=== PATIENT | male | born 1945 | race Caucasian/White ===

== ENCOUNTER 2020-08-23 12:43 | Outpatient (CLI) | payer MEDICARE, SELFPAY ==
--- NOTE | 2020-08-23 12:55 | XR_ITS ---
WS: [id number] Right knee, AP and lateral, 08/23/2020 Clinical Data: RT KNEE PAIN Comparison: None. Findings: No fractures or dislocations are seen. The joint spaces are normal. The patella is intact. The soft t issues are unremarkable. XR/XR knee RT 1-2V [id number] Impression: Negative right knee.
== END 2020-08-23 12:44 | disposition home or self-care (01) ==
PROVIDERS: PCP Family Medicine; Visit Provider Family Medicine
DX: M25.561 Pain in right knee (principal)
CPT/HCPCS: 73560

== ENCOUNTER 2024-09-26 11:01 | Outpatient (CLI) | payer MEDICARE, OTHER, SELFPAY ==
--- NOTE | 2024-09-26 11:05 | USCV_ITS ---
Dionte Zhang Age: 79 Gender: M : 1945 Exam Date: 09/26/2024 11:21 Ordering Phys: Juanita Manzanares NP Technologist: FAB [place] [facility] [place]: Risk Factors: Previous Vascular Surgery: RIGHT LEFT BP: 122.0 / 88.00 BP: 122.0/ 86.00 0 0 Waveform Velocity (cm/s) Velocity (cm/s) Waveform Triphasic 61.0 Iliac Prox 53.6 Triphasic Triphasic 52.5 Iliac Mid 48.1 Triphasic Triphasic 59.0 Iliac Distal 52.0 Triphasic Triphasic 67.0 FEEDER CATCHER TOBACCO 47.0 Triphasic Triphasic 71.0 SFA Prox 82.0 Triphasic Triphasic 53.0 SFA Mid 56.0 Triphasic Triphasic 56.0 SFA Dist 47.0 Biphasic Triphasic 44.0 POP 27.0 Triphasic Biphasic 55.0 SECURITY THREAT ANALYST 50.0 Biphasic Triphasic 47.0 DPA 54.0 Triphasic 1.2 GRACIELA 1.2 FINDINGS Resting GRACIELA 1.2 bilaterally. Intimal thickening and minimal plaque in the iliac, femoral and popliteal arteries bilaterally Normal or near normal arterial Doppler waveforms bilaterally CONCLUSIONS 1. Normal resting ABIs bilaterally suggesting no significant arterial obstruction. 2. Intimal thickening and minimal plaque in the iliac , femoral and popliteal arteries bilaterally Dr Ana Montalvo MD [facility] (Electronically Signed) Final Date: 26 September 2024 20:09 S
== END 2024-09-26 11:02 | disposition home or self-care (01) ==
LOC: RAD 11:03
PROVIDERS: PCP Nurse Practitioner Family; Visit Provider Nurse Practitioner Family
DX: I70.203 Unspecified atherosclerosis of native arteries of extremities, bilateral legs (principal); I73.00 Raynaud's syndrome without gangrene; L60.8 Other nail disorders; R60.0 Localized edema
CPT/HCPCS: 93925

== ENCOUNTER 2024-10-18 12:17 | Outpatient (CLI) | payer MEDICARE, OTHER, SELFPAY ==
--- NOTE | 2024-10-18 12:21 | USCV_ITS ---
Leatha Dionte Age: 79 Gender: M : 1945 Exam Date: 10/18/2024 12:34 Ordering Phys: Juanita Manzanares NP Technologist: FAB Exam Location: [facility] [place] Indication: edema HISTORY: Lower extremity edema. PROCEDURES: Venous duplex imaging was performed in bilateral lower extremities. The following venous structures were evaluated: common femoral vein, profunda vein, proximal portion of the greater saphenous vein, superficial femoral vein, and the popliteal vein. In addition, the posterior tibial and peroneal trunk were evaluated. Bilaterally, the common femoral, superficial femoral, profunda femoral, popliteal, posterior tibial, greater saphenous veins, and the peroneal trunk were identified and interrogated in the standard fashion. These veins were found to be easily compressible with spontaneous blood flow. No evidence of insufficiency or thrombus noted. Serial compression, augmentation maneuvers, and spectral Doppler flow evaluation were performed. FINDINGS: No evidence of DVT seen in any vessel visualized at this time. CONCLUSIONS No evidence of right lower extremity DVT. No evidence of left lower extremity DVT. Pastor Estrada MD (Electronically Signed) Final Date: 18 October 2024 15:24 S
== END 2024-10-18 12:18 | disposition home or self-care (01) ==
PROVIDERS: PCP Nurse Practitioner Family; Visit Provider Nurse Practitioner Family
DX: R60.0 Localized edema (principal); L60.8 Other nail disorders; R26.9 Unspecified abnormalities of gait and mobility; R29.898 Other symptoms and signs involving the musculoskeletal system; I73.00 Raynaud's syndrome without gangrene
CPT/HCPCS: 93970

== ENCOUNTER → 2025-01-04 15:48 | Outpatient (BNVA) | payer MEDICARE, OTHER, SELFPAY | PROVIDERS: PCP Nurse Practitioner Family; Referring Provider Nurse Practitioner Family; Visit Provider Specialist | DX: G62.9 Polyneuropathy, unspecified (principal); R29.898 Other symptoms and signs involving the musculoskeletal system; G62.89 Other specified polyneuropathies | CPT/HCPCS: 95910 ==

== ENCOUNTER → 2025-08-27 15:28 | Outpatient (BNVA) | payer MEDICARE, OTHER, SELFPAY | PROVIDERS: PCP Nurse Practitioner Family; Visit Provider Specialist | DX: G62.89 Other specified polyneuropathies (principal); E03.9 Hypothyroidism, unspecified; R62.50 Unspecified lack of expected normal physiological development in childhood; R25.2 Cramp and spasm; G82.20 Paraplegia, unspecified; E22.0 Acromegaly and pituitary gigantism; M47.12 Other spondylosis with myelopathy, cervical region; N31.9 Neuromuscular dysfunction of bladder, unspecified | CPT/HCPCS: 36415; 82607; 82746; 83003; 83921; 84443; 85651; 86140; 86334; 86431; 99205 ==

== ENCOUNTER 2025-09-13 11:44 | Outpatient (CLI) | payer MEDICARE, OTHER, SELFPAY ==
--- NOTE | 2025-09-13 12:15 | MR_ITS ---
WS: [id number] MRI THORACIC SPINE WITHOUT CONTRAST TECHNIQUE: Sagittal T1, T2 and STIR imaging. Axial T2 imaging. Noncontrast imaging obtained. CLINICAL INFORMATION: R25.2 - Cramp and spasm COMPARISON: None. FINDINGS: Mild thoracic curve. Mild thoracic kyphosis. No acute compression fractures. No high-grade central canal stenosis. Cord signal appears normal. No significant disc protrusions or extrusions. Disc space heights and vertebral body heights are relatively well-maintained. Moderate facet arthropathy lower thoracic spine. Adrenal glands are normal. Normal caliber descending thoracic aorta. Small esophageal hiatal hernia. MR/MR thoracic spin wo con* [id number] IMPRESSION: 1. No acute thoracic spine findings.
--- NOTE | 2025-09-13 13:00 | MR_ITS ---
WS: [id number] MRI LUMBAR SPINE NONCONTRAST TECHNIQUE: Sagittal T1, T2 and STIR imaging. Axial T1 and T2 imaging. CLINICAL INFORMATION: R25.2 - Cramp and spasm COMPARISON: None. FINDINGS: Exaggeration of the normal lumbar lordosis. No high-grade central canal narrowing. L1-L2: Normal. L2-L3: Mild annular bulging. Mild facet arthropathy. Mild LEFT greater than RIGHT foraminal narrowing. Mild facet arthropathy. L3-L4: LEFT foraminal protrusion impinges the exiting LEFT L3 nerve root with mild to moderate foraminal narrowing. RIGHT foramen is patent. Mild facet arthropathy. Narrowing of the LEFT subarticular recess. L4-L5: Mild annular bulging. Mild facet arthropathy. Mild LEFT greater than RIGHT foraminal narrowing. L5-S1: L5 is partially sacralized. Spinal canal and foramen are patent. Visualized pelvic bony structures: Normal. Paravertebral soft tissues: Normal. MR/MR lumbar spine wo con* [id number] IMPRESSION: 1. Exaggeration of the normal lumbar lordosis. No high-grade central canal shannan nosis. 2. Mild clumping of the cauda equina nerve roots with peripheral displacement at L4 extending distally suspicious for arachnoiditis. 3. LEFT foraminal protrusion L3-4 impinges the exiting LEFT L3 nerve root. 4. Mild LEFT L2-3 foraminal narrowing with a small LEFT foraminal protrusion. 5. Mild LEFT L4-5 foraminal narrowing.
== END 2025-09-13 11:45 | disposition home or self-care (01) ==
LOC: RAD 11:45
PROVIDERS: PCP Nurse Practitioner Family; Visit Provider Specialist
DX: R25.2 Cramp and spasm (principal); M51.369 Other intervertebral disc degeneration, lumbar region without mention of lumbar back pain or lower extremity pain; M48.061 Spinal stenosis, lumbar region without neurogenic claudication; M47.816 Spondylosis without myelopathy or radiculopathy, lumbar region; M51.16 Intervertebral disc disorders with radiculopathy, lumbar region; M43.27 Fusion of spine, lumbosacral region; G83.4 Cauda equina syndrome; M40.56 Lordosis, unspecified, lumbar region; M40.04 Postural kyphosis, thoracic region; M40.204 Unspecified kyphosis, thoracic region; M47.814 Spondylosis without myelopathy or radiculopathy, thoracic region; K44.9 Diaphragmatic hernia without obstruction or gangrene
CPT/HCPCS: 72146; 72148

== ENCOUNTER 2025-09-19 12:49 | Outpatient (CLI) | payer MEDICARE, OTHER, SELFPAY ==
--- NOTE | 2025-09-19 13:00 | MR_ITS ---
WS: [id number] MRI BRAIN WITHOUT CONTRAST HISTORY: G62.89 - Other specified polyneuropathies COMPARISON: None available. TECHNIQUE: Diffusion imaging, multiplanar T1, T2 and FLAIR imaging obtained. No evidence for acute infarct or hemorrhage. Wang-white matter differentiation is normal. No prior infarcts. Minimal small vessel disease. Tiny lacunar infarct external capsule on the LEFT. Mild LEFT hippocampal atrophy. Ventricles and extra-axial spaces are normal. No inferior displacement of cerebellar tonsils. The sella turcica and pituitary gland are unremarkable. Dural venous sinuses and [place] demonstrate no abnormality on this unenhanced studies. Tortuous, ectatic intracranial carotid arteries. Paranasal sinuses: Clear. Mastoid air cells: Small amount of fluid in the RIGHT mastoid air cells. Calvarium and scalp: Intact. MR/MR head wo con* [id number] IMPRESSION: 1. Normal diffusion imaging. No acute infarct. 2. Mild small vessel changes within the brain. 3. Mild RIGHT mastoid air cell effusion. 4. Mild LEFT hippocampal atrophy.
--- NOTE | 2025-09-19 13:45 | MR_ITS ---
WS: [id number] MRI CERVICAL SPINE NONCONTRAST HISTORY: R25.2 - Cramp and spasm COMPARISON: None available. Technique: Multiplanar, multisequence noncontrast imaging of the cervical spine. Mild increase in the cervical lordosis. 2 mm anterolisthesis of C5. Disc spaces are narrowed and desiccated. No acute fracture or marrow edema. Signal within the cervical cord is normal. Visualized posterior fossa is unremarkable. Craniocervical junction, C1 and C2 relationship, odontoid process and soft tissues are normal. C2-C3: Normal. C3-C4: Mild osteophytic ridging and bilateral facet arthritis. Mild bilateral foraminal stenosis. C4-C5: Disc bulging and osteophytic ridging. Small central disc protrusion and facet arthritis. Mild foraminal stenosis. C5-C6: Diffuse disc bulging with a shallow central disc protrusion. Mild osteophytic ridging and facet arthritis. Mild LEFT and moderate RIGHT foraminal stenosis. C6-C7: Annular disc bulging with central disc protrusion and osteophytic ridging. Bilateral facet arthritis. Bilateral foraminal disc osteophyte complexes RIGHT greater than LEFT. No central stenosis. Moderate bilateral foraminal stenosis. C7-T1: Mild bilateral foraminal stenosis due to facet disease and uncinate osteophytes. Paraspinal soft tissue are normal. MR/MR cervical spin wo con* [id number] IMPRESSION: 1. Multilevel moderate cervical spondylosis. 2. Mild bilateral foraminal stenosis at C3-4 and C7-T1. 3. Small central disc protrusion at C4-5 and mild foraminal stenosis. 4. Moderate RIGHT and mild LEFT foraminal stenosis at C5-6 due to disc osteoph ytes. 5. Moderate bilateral foraminal stenosis at C6-7 due to disc osteophyte diseas e and facet disease. Small central disc protrusion resulting in mild stenosis. 6. Facet joint arthropathy from C3-4 through C7-T1. 7. No signal abnormality within the cord.
== END 2025-09-19 12:50 | disposition home or self-care (01) ==
PROVIDERS: PCP Nurse Practitioner Family; Visit Provider Specialist
DX: I67.89 Other cerebrovascular disease (principal); M47.812 Spondylosis without myelopathy or radiculopathy, cervical region; G62.89 Other specified polyneuropathies; G31.9 Degenerative disease of nervous system, unspecified; M25.78 Osteophyte, vertebrae; M48.02 Spinal stenosis, cervical region; M48.03 Spinal stenosis, cervicothoracic region; M50.321 Other cervical disc degeneration at C4-C5 level; M50.322 Other cervical disc degeneration at C5-C6 level; M50.323 Other cervical disc degeneration at C6-C7 level
CPT/HCPCS: 70551; 72141